=== PATIENT | female | born 1970 | race Caucasian/White ===

== ENCOUNTER → 2018-03-27 | Outpatient (CLI) | payer BC | LOC: COL.RAD 14:10 | DX: R10.9 Unspecified abdominal pain (principal) ==

== ENCOUNTER → 2018-12-20 | Outpatient (CLI) | payer BC | LOC: MC.RAD 10:52 | DX: Z12.31 Encounter for screening mammogram for malignant neoplasm of breast (principal) ==

== ENCOUNTER → 2018-12-22 | Outpatient (CLI) | payer BC | LOC: MC.RAD 08:28 | DX: N60.01 Solitary cyst of right breast (principal); N60.02 Solitary cyst of left breast ==